=== PATIENT | male | born 1940 | race Caucasian/White ===

== ENCOUNTER 2022-10-28 09:31 | Outpatient (CLI) | payer MEDICARE | END 2022-10-28 09:32 | disposition home or self-care (01) | LOC: CSHCT 09:31 | PROVIDERS: ATTEND Otolaryngology Plastic Surgery within the Head & Neck | DX: H90.3 Sensorineural hearing loss, bilateral (principal); Z98.890 Other specified postprocedural states; H74.8X3 Other specified disorders of middle ear and mastoid, bilateral | CPT/HCPCS: 70480 ==

== ENCOUNTER 2023-03-23 09:52 | Outpatient (CLI) | payer MEDICARE ==
[2023-03-23 11:05] LABS: Hematocrit 34.6 % (38.8-50.0); Hemoglobin 11.8 g/dL (13.5-17.5)
[2023-03-23 11:43] LABS: Anion Gap 16 mmol/L (10-20); BUN (Urea Nitrogen) 35 mg/dL (8.4-25.7); Calc. Creatinine Clearance 0 mL/min (70-130); Calcium 9.5 mg/dL (7.8-10.44); Carbon Dioxide 22 mmol/L (23-31); Chloride 108 mmol/L (98-107); Estimated GFR 55; Glucose 110 mg/dL (83-110); Potassium 4.3 mmol/L (3.5-5.1); Sodium 142 mmol/L (136-145)
== END 2023-03-23 09:53 | disposition home or self-care (01) ==
LOC: CSHLAB 09:52
PROVIDERS: ATTEND Otolaryngology Plastic Surgery within the Head & Neck
DX: Z01.818 Encounter for other preprocedural examination (principal)
CPT/HCPCS: 80048; 85014; 85018; 93005; 93010

== ENCOUNTER 2023-03-30 06:02 | Day surgery (SDC) | payer MEDICARE ==
[2023-03-23 10:34] VITALS: BMI 22.1
[2023-03-30] MEDS ORDERED: Dexmedetomidine 200 MCG/2 ML VIAL ONE (06:20)
[2023-03-30] MEDS ORDERED: Rocuronium Bromide 10 MG/ML (10ML VIAL) ONE (07:23)
[2023-03-30] MEDS ORDERED: PROPOFOL 20 ML ONE (07:23)
[2023-03-30] MEDS ORDERED: Fentanyl 250 MCG/5 ML VIAL ONE (07:23)
[2023-03-30] MEDS ORDERED: Lidocaine 1% PF 5 ML VIAL ONE (07:23)
[2023-03-30] MEDS ORDERED: Dexamethasone 20 MG/5 ML VIAL ONE (07:23)
[2023-03-30] MEDS ORDERED: Ondansetron PF 4 MG/2 ML Vial ONE (07:23)
[2023-03-30] MEDS ORDERED: Midazolam HCl 2 mg/2 ml Vial ONE (07:24)
[2023-03-30] MEDS ORDERED: oFLOXacin 0.3% Opth 5 ML BOT ONE (07:36)
[2023-03-30] MEDS ORDERED: Mupirocin 2% Ointment 22 GM Tube ONE (07:36)
[2023-03-30] MEDS ORDERED: EPINEPHrine 1 MG/ML VIAL ONE ×2 (07:36→11:38)
[2023-03-30] MEDS ORDERED: Lidocaine 1% w/Epinephrine 1:100K 20 ML VIAL ONE (07:37)
[2023-03-30] MEDS ORDERED: CEFAZOLIN 2 GM VIAL ONE (10:24)
[2023-03-30] MEDS ORDERED: PHENYLEPHRINE-NS 100 MCG/ML 10 ML SYRINGE ONE (11:28)
[2023-03-30] MEDS ORDERED: Vasopressin 20 UNITS/ML VIAL ONE (11:36)
[2023-03-30] MEDS ORDERED: ePHEDrine Sulfate 50 MG/10 ML VIAL ONE (11:47)
[2023-03-30] MEDS ORDERED: Phenylephrine 10 MG/ML VIAL ONE (12:27)
[2023-03-30] MEDS ORDERED: HYDROcodone/Acetaminophen 5/325 mg Tablet ONE (15:33)
== END 2023-03-30 16:05 | disposition home or self-care (01) ==
LOC: CSHSDC 06:02
PROVIDERS: ATTEND Otolaryngology Plastic Surgery within the Head & Neck
PROC: F0BZ09Z Cochlear Implant Rehabilitation Treatment using Cochlear Implant Equipment (ICD-10-PCS; principal; 2023-03-30)
DX: H90.3 Sensorineural hearing loss, bilateral (principal); H61.21 Impacted cerumen, right ear; H92.11 Otorrhea, right ear; I10 Essential (primary) hypertension; E78.00 Pure hypercholesterolemia, unspecified; Z79.899 Other long term (current) drug therapy; Z79.82 Long term (current) use of aspirin
CPT/HCPCS: 69930; 70250; J0171; C1713; J1100; J2250; J2371; J2405; J2704; J3010; L8614